=== PATIENT | female | born 1950 | race Caucasian/White ===

== ENCOUNTER 2016-03-27 10:29 | Emergency (ER) | payer MEDICARE, BC ==
[~2016-03-27] VITALS: Wt 72.5 kg
[2016-03-27] MEDS ORDERED: morphine 2 MG INJ IV STA (12:13)
[2016-03-27] MEDS ORDERED: ONDANSETRON 4 MG INJ IV STA (12:13)
[2016-03-27] MEDS ORDERED: SOD CHLORIDE 0.9% 1,000 ML IV STA (12:13)
[2016-03-27] MEDS ORDERED: ASPIRIN 81 MG TAB PO ONE (12:30)
--- NOTE | 2016-03-27 12:39 | RADRPT ---
PROCEDURE: XR Chest. CLINICAL INDICATION: chest pain TECHNIQUE: Single frontal view of the chest was obtained COMPARISON: None FINDINGS: The heart and mediastinum are within normal limits. The lungs are clear. There is no pleural effusion or pneumothorax. RPTAT: AA IMPRESSION: No acute disease. .Primitivo Da Silva MD, Date Time Electronically viewed and signed by .Primitivo Da Silva MD, on 03/27/2016 12:39 .S/
[2016-03-27 13:10] LABS: EOSINOPHILS % 0.5 % (0.0-7.0); HEMATOCRIT 41.2 % (37.0-47.0); HEMOGLOBIN 14.1 g/dl (12.0-16.0); LYMPHOCYTES # 0.8 10^3/ul (0.8-2.9); LYMPHOCYTES % 10.8 % (15.0-51.0); MEAN CORPUSCULAR HEMOGLOBIN 32.3 pg (29.0-33.0); MEAN CORPUSCULAR HGB CONC 34.2 g/dl (32.0-37.0); MEAN CORPUSCULAR VOLUME 94.5 fl (82.0-101.0); MEAN PLATELET VOLUME 8.2 fl (7.4-10.4); MONOCYTE # 0.7 10^3/ul (0.3-0.9); MONOCYTES % 10.4 % (0.0-11.0); NEUTROPHIL # 5.5 10^3/ul (1.6-7.5); NEUTROPHILS % 78.3 % (39.0-77.0); PLATELET COUNT 195 10^3/UL (140-440); RED BLOOD COUNT 4.36 10^6/ul (4.20-5.40)
[2016-03-27 13:10] LABS: ADD UMIC YES; URINE BILIRUBIN (Dip) NEGATIVE (NEGATIVE); URINE BLOOD (Dip) 3+ (NEGATIVE); URINE COLOR YELLOW (YELLOW); URINE GLUCOSE (Dip) NEGATIVE (NEGATIVE); URINE KETONES (Dip) NEGATIVE (NEGATIVE); URINE LEUKOCYTE ESTERASE (Dip) TRACE (NEGATIVE); URINE NITRITE (Dip) POSITIVE (NEGATIVE); URINE TOTAL PROTEIN (Dip) 2+ (NEGATIVE); URINE UROBILINOGEN (Dip) 0.2 E.U./dL (0.1-1.0)
[2016-03-27 13:20] LABS: ALBUMIN 4.5 g/dl (3.3-4.9); POTASSIUM 4.1 mmol/L (3.5-5.1)
[2016-03-27 13:22] LABS: CREATININE 0.76 mg/dl (0.44-1.00)
[2016-03-27 13:23] LABS: ALBUMIN/GLOBULIN RATIO 1.25; BILIRUBIN,INDIRECT 0.7 mg/dl (0-1.1); BILIRUBIN,TOTAL 0.7 mg/dl (0.2-1.3); CALCIUM 9.1 mg/dl (8.4-10.2); CONDITION 1; TOTAL PROTEIN 8.1 g/dl (6.1-8.1)
[2016-03-27 13:34] LABS: BACTERIA,URINE MANY
[2016-03-27] MEDS ORDERED: DICLOFENAC SODIUM 37.5 MG/ML VIAL IV STA (13:46)
[2016-03-27] MEDS ORDERED: CEFTRIAXONE 1 GM/50 ML (PMX) 50 ML IVPB ONE (14:00)
[2016-03-27] MEDS ORDERED: CIPR500T4 PO (14:40)
[2016-03-27] MEDS ORDERED: NAPR-688 PO (14:43)
--- NOTE | 2016-03-27 14:51 | ERD ---
ER Documentation Chief Complaint Date/Time DATE: 03/27/16 TIME: 14:50 Chief Complaint COUGH, FEVER, CHEST PAIN WITH COUGHING HPI 65-year-old female presents with cough, fevers, mild cough, chest pain while coughing only. No shortness of breath. Does have dysuria with suprapubic pain as well. Denies altered mental status does have slight generalized weakness as well. ROS All systems reviewed and are negative except as per history of present illness. Medications Home Meds Active Scripts Naproxen* (Naproxen*) 500 Mg Tablet, 500 MG PO BID, #14 TAB Prov:KAVON AGUILAR DO 03/27/16 Ciprofloxacin Hcl* (Ciprofloxacin Hcl*) 500 Mg Tablet, 500 MG PO BID for 7 Days , TAB Prov:KAVON AGUILAR DO 03/27/16 Allergies Allergies: Coded Allergies: No Known Allergy (Unverified , 03/27/16) PMhx/Soc Medical and Surgical Hx: pt denies Medical Hx, pt denies Surgical Hx Hx Alcohol Use: No Hx Substance Use: No Hx Tobacco Use: No Smoking Status: Never smoker Physical Exam Vitals Vital Signs Date Time Temp Pulse Resp B/P Pulse Ox O2 Delivery O2 Flow Rate FiO2 03/27/16 13:00 84 19 136/61 96 Room Air 03/27/16 10:38 101.2 99 18 134/73 95 Physical Exam Const: [] No distress Head: Atraumatic Eyes: Normal Conjunctiva ENT: Normal External Ears, Nose and Mouth. Neck: Full range of motion..~ No meningismus. Resp: Clear to auscultation bilaterally Cardio: Regular rate and rhythm, no murmurs Abd: Soft, non tender, non distended. Normal bowel sounds Skin: No petechiae or rashes Back: No midline or flank tenderness Ext: No cyanosis, or edema Neur: Awake and alert oriented 3, no focal deficits Psych: Normal Mood and Affect Result Diagram: 03/27/16 1220 03/27/16 1220 Results 24 hrs Laboratory Tests Test 03/27/16 12:20 03/27/16 12:45 Alanine Aminotransferase (ALT/SGPT) 29IU/L Albumin 4.5g/dl Albumin/Globulin Ratio 1.25 Alkaline Phosphatase 119IU/L Anion Gap 17 Aspartate Amino Transf (AST/SGOT) 31IU/L Basophils # 0.010^3/ul Basophils % 0.0% Blood Urea Nitrogen 13mg/dl Calcium Level 9.1mg/dl Carbon Dioxide Level 28mmol/L Chloride Level 99mmol/L Creatinine 0.76mg/dl Direct Bilirubin 0.00mg/dl Eosinophils # 0.010^3/ul Eosinophils % 0.5% Globulin 3.60g/dl Glucose Level 101mg/dl Hematocrit 41.2% Hemoglobin 14.1g/dl Indirect Bilirubin 0.7mg/dl Lipase 80U/L Lymphocytes # 0.810^3/ul Lymphocytes % 10.8% Mean Corpuscular Hemoglobin 32.3pg Mean Corpuscular Hemoglobin Concent 34.2g/dl Mean Corpuscular Volume 94.5fl Mean Platelet Volume 8.2fl Monocytes # 0.710^3/ul Monocytes % 10.4% Neutrophils # 5.510^3/ul Neutrophils % 78.3% Nucleated Red Blood Cells # 0.010^3/ul Nucleated Red Blood Cells % 0.0/100WBC Platelet Count 08607^3/UL Potassium Level 4.1mmol/L Red Blood Count 4.3610^6/ul Red Cell Distribution Width 13.0% Sodium Level 140mmol/L Total Bilirubin 0.7mg/dl Total Protein 8.1g/dl White Blood Count 7.010^3/ul Urine Bacteria MANY Urine Bilirubin NEGATIVE Urine Clarity CLEAR Urine Color YELLOW Urine Glucose NEGATIVE% Urine Hemoglobin 3+ Urine Ketones NEGATIVE Urine Leukocyte Esterase TRACE Urine Microscopic RBC 5-10/HPF Urine Microscopic WBC 2-5/HPF Urine Nitrite POSITIVE Urine Specific [place] 1.025 Urine Total Protein 2+ Urine Urobilinogen 0.2 E.U./dL Urine Yeast FEW Urine pH 6.0 Current Medications Medications (Trade) Dose Ordered Sig/Jaspreet Route PRN Reason Start Time Stop Time Status Last Admin Dose Admin Sodium Chloride (NS) 1,000 ml @ 1,000 mls/hr Q1H STAT IV 03/27/16 12:13 03/27/16 13:12 DC 03/27/16 12:57 Morphine Sulfate (morphine) 2 mg ONCE STAT IV 03/27/16 12:13 03/27/16 12:21 DC 03/27/16 12:56 Ondansetron HCl (Zofran Inj) 4 mg ONCE STAT IV 03/27/16 12:13 03/27/16 12:21 DC 03/27/16 12:56 Aspirin 324 mg 324 mg ONCE ONCE PO 03/27/16 12:30 03/27/16 12:31 DC 03/27/16 12:56 Ceftriaxone Sodium (Rocephin) 50 ml @ 100 mls/hr ONCE ONCE IVPB 03/27/16 14:00 03/27/16 14:29 DC 03/27/16 13:54 Diclofenac Sodium (Dyloject) 37.5 mg ONCE STAT IV 03/27/16 13:46 03/27/16 13:48 DC 03/27/16 13:53 Procedures/MDM 25-year-old with UTI and pain viral upper respiratory infection with no signs of pneumonia. I have very low suspicion for acute coronary surgeon was patient had a nonischemic EKG and the chest pain is only upon cough. She was given normal saline hydration as well as Zofran and morphine. She is feeling much better in the emergency room. Her vital signs are stable. I have low suspicion for serious bacterial infection or abdominal emergency. Is also no signs of sepsis with stable vital signs and a non-elevated white count. She was also given a gram of Rocephin. She's being discharged with prescription for Cipro 7 days as well as naproxen for pain. Return precautions given. EKG interpretation: Normal sinus rhythm rate 97, normal axis, no ST or T-wave changes concerning for acute ischemia registered nurse midwife interpretation: Normal sinus rhythm without arrhythmia Chest x-ray interpreted, no acute process no infiltrate no pneumothorax no and he stated over edema no fractures Departure Diagnosis: Primary Impression: UTI (urinary tract infection) Condition: Stable Patient Instructions: Understanding Urinary Tract Infections (UTIs), Uri, Viral , No Abx (Adult) Referrals: [facility] YOU HAVE RECEIVED A MEDICAL SCREENING EXAM AND THE RESULTS INDICATE THAT YOU DO NOT HAVE A CONDITION THAT REQUIRES URGENT TREATMENT IN THE EMERGENCY DEPARTMENT. FURTHER EVALUATION AND TREATMENT OF YOUR CONDITION CAN WAIT UNTIL YOU ARE SEEN IN YOUR DOCTORS OFFICE WITHIN THE NEXT 1-2 DAYS. IT IS YOUR RESPONSIBILITY TO MAKE AN APPOINTMENT FOR FOLOW-UP CARE. IF YOU HAVE A PRIMARY DOCTOR --you should call your primary doctor and schedule an appointment IF YOU DO NOT HAVE A PRIMARY DOCTOR YOU CAN CALL OUR PHYSICIAN REFERRAL HOTLINE AT IF YOU CAN NOT AFFORD TO SEE A PHYSICIAN YOU CAN CHOSE FROM THE FOLLOWING FORMERLY [facility] [address] [facility] [address] [facility] [address] [facility] [address] [facility]. [facility] [address] [facility]. [facility] [address] Additional Instructions: Llame al doctor MAANA y nick wendy KERRY PARA DENTRO DE 2-3 SANDERS.Dgale a la secretaria que nosotros le instruimos hacer esta kerry.Avise o llame si silva condicin se empeora antes de la kerry. Regresa aqui si peor o no mejor. KAVON AGUILAR DO Mar 27, 2016 14:51
[2016-03-27 15:29] VITALS: BP 109/64; PULSE 94; RESP 19; TEMP 99.1
== END 2016-03-27 15:30 | disposition home or self-care (01) ==
LOC: E/R 10:29
DX: N39.0 Urinary tract infection, site not specified (principal); R07.9 Chest pain, unspecified
CPT/HCPCS: 36415; 71010; 80053; 81001; 83690; 85025; 87400; 93005; 96374; 96375; 99285; J0696; J2270; J2405; J7030; 81003